=== PATIENT | female | born 1950 | race Caucasian/White ===

== ENCOUNTER 2017-08-24 08:04 | Outpatient (CLI) | payer MEDICARE | END 2017-08-24 08:05 | disposition home or self-care (01) | LOC: BICMAMMO 08:04 | PROVIDERS: ATTEND Obstetrics & Gynecology | DX: Z12.31 Encounter for screening mammogram for malignant neoplasm of breast (principal) | CPT/HCPCS: 77063; G0202; 77067 ==

== ENCOUNTER 2017-10-20 08:56 | Outpatient (CLI) | payer MEDICARE ==
[2017-10-20] MEDS ORDERED: ISOVUE-370 76%-LOCM 1 ML ONE (13:24)
== END 2017-10-20 08:57 | disposition home or self-care (01) ==
LOC: BICCT 08:56
PROVIDERS: ATTEND Internal Medicine Hematology & Oncology
DX: N18.2 Chronic kidney disease, stage 2 (mild) (principal); D63.1 Anemia in chronic kidney disease; D50.0 Iron deficiency anemia secondary to blood loss (chronic); E53.8 Deficiency of other specified B group vitamins; K57.90 Diverticulosis of intestine, part unspecified, without perforation or abscess without bleeding
CPT/HCPCS: 74177

== ENCOUNTER 2018-09-02 09:41 | Outpatient (CLI) | payer MEDICARE | END 2018-09-02 09:42 | disposition home or self-care (01) | LOC: BICMAMMO 09:41 | PROVIDERS: ATTEND Obstetrics & Gynecology | DX: Z12.31 Encounter for screening mammogram for malignant neoplasm of breast (principal) | CPT/HCPCS: 77063; 77067 ==

== ENCOUNTER 2019-09-05 09:22 | Outpatient (CLI) | payer MEDICARE ==
--- NOTE | 2019-09-05 14:41 | MMO ---
Bilateral MAMMO Bilat Screen [facility]. CLINICAL HISTORY: Patient is 69 years old and is seen for screening. The patient has no family history of breast cancer. The patient has no personal history of cancer. VIEWS: The views performed were: bilateral craniocaudal with tomosynthesis and bilateral mediolateral oblique with tomosynthesis. FILMS COMPARED: The present examination has been compared to prior imaging studies performed at [facility] on 08/24/2017 and 09/02/2018, at [facility] on 07/23/2015, and at [facility] on 07/23/2016. This study has been interpreted with the assistance of computer-aided detection. MAMMOGRAM FINDINGS: The breasts are heterogeneously dense, which could obscure a lesion on mammography. Benign calcifications are noted bilaterally. Nodularity is stable. There are no suspicious masses, suspicious calcifications, or new areas of architectural distortion. IMPRESSION: THERE IS NO MAMMOGRAPHIC EVIDENCE OF MALIGNANCY. A ROUTINE FOLLOW-UP MAMMOGRAM IN 1 YEAR IS RECOMMENDED. THE RESULTS OF THIS EXAM WERE SENT TO THE PATIENT. ACR BI-RADS Category 2 - Benign finding MAMMOGRAPHY NOTE: 1. A negative mammogram report should not delay a biopsy if a dominant of clinically suspicious mass is present. 2. Approximately 10% to 15% of breast cancers are not detected by mammography. 3. Adenosis and dense breasts may obscure an underlying neoplasm. Reported by: ODETTE MARLEY MD Electonically Signed: [id number]
== END 2019-09-05 09:23 | disposition home or self-care (01) ==
LOC: BICMAMMO 09:22
PROVIDERS: ATTEND Obstetrics & Gynecology
DX: Z12.31 Encounter for screening mammogram for malignant neoplasm of breast (principal)
CPT/HCPCS: 77063; 77067

== ENCOUNTER 2022-12-26 18:04 | Emergency (ER) | payer OTHER, MEDICARE ==
[2022-12-26] MEDS ORDERED: Acetaminophen 500 MG TAB ONE (19:58)
== END 2022-12-26 20:20 | disposition home or self-care (01) ==
LOC: ERS 18:04
DX: S80.211A Abrasion, right knee, initial encounter (principal); S09.90XA Unspecified injury of head, initial encounter; I10 Essential (primary) hypertension; W01.0XXA Fall on same level from slipping, tripping and stumbling without subsequent striking against object, initial encounter; Z79.82 Long term (current) use of aspirin
CPT/HCPCS: 70450; 72125